=== PATIENT | male | born 1960 | race Caucasian/White ===

== ENCOUNTER 2017-10-04 09:31 | Emergency (ER) | payer OTHER, MEDICAID ==
[~2017-10-04] VITALS: Ht 167.6 cm; Wt 75.0 kg
[~2017-10-04 09:31] MED LIST: CILO100T PO; HYDR-3533 PO; LISI-586 PO; METO50TA PO; TRAM50 PO; ZOCO40TA PO; ZOFR4TAB3 SL
[2017-10-04 09:35] VITALS: BP 192/88; PULSE 78; RESP 24; TEMP 97.8; O2SAT 98
--- NOTE | 2017-10-04 10:10 | RADRPT ---
EXAM DATE/TIME: 10/04/2017 09:59 [place] COMPARISON: No previous studies available for comparison. INDICATIONS : Short of breath and swollen feet. MEDICAL HISTORY : Chronic obstructive pulmonary disease. SURGICAL HISTORY : None. ENCOUNTER: Initial ACUITY: 3 days PAIN SCORE: 0/10 LOCATION: Bilateral chest FINDINGS: PA and lateral views of the chest demonstrate the lungs to be symmetrically aerated without evidence of mass, infiltrate or effusion. The cardiomediastinal contours are unremarkable. Osseous structure s are intact. CONCLUSION: No acute disease. Benjamín Smyth MD on October 04, 2017 at 10:07 Board Certified Radiologist. This report was verified electronically.
[2017-10-04 10:23] LABS: AUTOMATED NEUTROPHIL # 6.7 TH/MM3 (1.8-7.7); BASOPHIL # 0.1 TH/MM3 (0-0.2); BASOPHIL % 0.9 % (0.0-2.0); EOSINOPHIL # 0.2 TH/MM3 (0-0.4); EOSINOPHIL % 2.5 % (0.0-4.0); HEMATOCRIT 48.3 % (39.0-51.0); HEMOGLOBIN 16.9 GM/DL (13.0-17.0); LYMPH % 19.6 % (9.0-44.0); LYMPHOCYTE # 1.9 TH/MM3 (1.0-4.8); MEAN CELL VOLUME 92.7 FL (80.0-100.0); MEAN CORPUSCULAR HEMOGLOBIN 32.4 PG (27.0-34.0); MEAN CORPUSCULAR HGB CONC 34.9 % (32.0-36.0); MEAN PLATELET VOLUME 7.8 FL (7.0-11.0); MONO % 9.1 % (0.0-8.0); MONOCYTE # 0.9 TH/MM3 (0-0.9); NEUT % 67.9 % (16.0-70.0); PLATELET COUNT 234 TH/MM3 (150-450); RED BLOOD COUNT 5.21 MIL/MM3 (4.50-5.90); RED CELL DISTRIBUTION WIDTH 14.6 % (11.6-17.2); WHITE BLOOD COUNT 9.8 TH/MM3 (4.0-11.0)
[2017-10-04 10:28] VITALS: PULSE 74; RESP 18; O2SAT 99
[2017-10-04 10:28] LABS: PROTHROMBIN TIME - PATIENT 9.9 SEC (9.8-11.6)
[2017-10-04 10:34] LABS: BICARBONATE 26.2 MEQ/L (21.0-32.0); BLOOD UREA NITROGEN 11 MG/DL (7-18); CALCIUM 9.4 MG/DL (8.5-10.1); CHLORIDE 104 MEQ/L (98-107); CREATININE 1.03 MG/DL (0.60-1.30); GLOMERULAR FILTRATION RATE 74 ML/MIN (>89); GLUCOSE,RANDOM 94 MG/DL (74-106); SODIUM (NA) 139 MEQ/L (136-145)
[2017-10-04 10:39] LABS: TROPONIN I LESS THAN 0.02 NG/ML (0.02-0.05)
[2017-10-04] MEDS ORDERED: ATOR20TA15 PO (10:46)
[2017-10-04] MEDS ORDERED: CILO100T PO (10:46)
[2017-10-04] MEDS ORDERED: OMEP20TA93 PO (10:46)
[2017-10-04] MEDS ORDERED: LISI20TA PO (10:46)
[2017-10-04] MEDS ORDERED: MIRTA15 PO (10:46)
--- NOTE | 2017-10-04 11:02 | PD ---
HPI Chief Complaint: Edema Time Seen by Provider: 10:23 Travel History International Travel<30 days: No Contact w/Intl Traveler<30days: No Traveled to known affect area: No History of Present Illness HPI 57-year-old man presents to the emergency department some lower extremity swelling. States he has noticed swelling of both ankles ongoing for the past several days. He has not had a history of problems in the past. No history of kidney problems. No history of heart problems. He does have COPD. He states his breathing's been at baseline. He also has peripheral arterial disease, takes a blood thinner, but has not noticed any change in his symptoms. No pain. No history of DVT. No other complaints. History Past Medical History Narrative Medical COPD Hypertension Hyperlipidemia Peripheral arterial disease Influenza Vaccination: Yes Social History Alcohol Use: No Tobacco Use: Yes (07/28 ppd) Allergies-Medications (Allergen,Severity, Reaction): Coded Allergies: penicillin G (Unverified Allergy, Severe, Hives, 03/08/17) Reported Meds & Prescriptions Reported Meds & Active Scripts Active Reported Mirtazapine 15 Mg Tab 15 Mg PO HS Cilostazol 100 Mg Tab 100 Mg PO BID Take 30 minutes before or 2hrs after breakfast and dinner Omeprazole 20 Mg Tab 20 Mg PO DAILY Lisinopril-Hctz 20-12.5 Mg Tab 1 Tab PO DAILY Atorvastatin (Atorvastatin Calcium) 20 Mg Tab 20 Mg PO HS Review of Systems Except as stated in HPI: all other systems reviewed are Neg Physical Exam Narrative GENERAL: Well-appearing 57-year-old man, in no acute distress. SKIN: Focused skin assessment warm/dry. HEAD: Atraumatic. Normocephalic. EYES: Pupils equal and round. No scleral icterus. No injection or drainage. ENT: No nasal bleeding or discharge. Mucous membranes pink and moist. NECK: Trachea midline. No JVD. CARDIOVASCULAR: Regular rate and rhythm. No murmur appreciated. RESPIRATORY: No accessory muscle use. Clear to auscultation. Breath sounds equal bilaterally. GASTROINTESTINAL: Abdomen soft, non-tender, nondistended. Hepatic and splenic margins not palpable. MUSCULOSKELETAL: No obvious deformities. Some minimal pitting edema both lower extremities. Feet are a little bit cool. Palpable DP pulses bilaterally. A little bit of mottling in the toes. Clubbing in the nails of the toes. There is no erythema redness or evidence of cellulitis. This may be a little bit of warmth. Is no calf tenderness. Feet or legs are symmetric bilaterally. Data Data Last Documented VS Vital Signs Date Time Temp Pulse Resp B/P (MAP) Pulse Ox O2 Delivery O2 Flow Rate FiO2 10/04/17 10:28 74 18 99 Room Air 10/04/17 09:35 97.8 192/88 (122) Orders Orders Electrocardiogram (10/04/17 09:41) Complete Blood Count With Diff (10/04/17 09:41) Basic Metabolic Panel (Bmp) (10/04/17 09:41) Ckmb (Isoenzyme) Profile (10/04/17:41) Troponin I (10/04/17:41) Iv Access Insert/Monitor (10/04/17:41) Ecg Monitoring (10/04/17 09:41) Oxygen Administration (10/04/17 09:41) Oximetry (10/04/17 09:41) Chest, Pa & Lat (10/04/17 09:41) Coag Profile (10/04/17 09:41) CKMB (10/04/17 09:46) CKMB% (10/04/17 09:46) Labs Laboratory Tests Test 10/04/17 09:46 White Blood Count 9.8 TH/MM3 Red Blood Count 5.21 MIL/MM3 Hemoglobin 16.9 GM/DL Hematocrit 48.3 % Mean Corpuscular Volume 92.7 FL Mean Corpuscular Hemoglobin 32.4 PG Mean Corpuscular Hemoglobin Concent 34.9 % Red Cell Distribution Width 14.6 % Platelet Count 234 TH/MM3 Mean Platelet Volume 7.8 FL Neutrophils (%) (Auto) 67.9 % Lymphocytes (%) (Auto) 19.6 % Monocytes (%) (Auto) 9.1 % Eosinophils (%) (Auto) 2.5 % Basophils (%) (Auto) 0.9 % Neutrophils # (Auto) 6.7 TH/MM3 Lymphocytes # (Auto) 1.9 TH/MM3 Monocytes # (Auto) 0.9 TH/MM3 Eosinophils # (Auto) 0.2 TH/MM3 Basophils # (Auto) 0.1 TH/MM3 CBC Comment DIFF FINAL Differential Comment Prothrombin Time 9.9 SEC Prothromb Time International Ratio 1.0 RATIO Activated Partial Thromboplast Time 23.8 SEC Blood Urea Nitrogen 11 MG/DL Creatinine 1.03 MG/DL Random Glucose 94 MG/DL Calcium Level 9.4 MG/DL Sodium Level 139 MEQ/L Potassium Level 4.1 MEQ/L Chloride Level 104 MEQ/L Carbon Dioxide Level 26.2 MEQ/L Anion Gap 9 MEQ/L Estimat Glomerular Filtration Rate 74 ML/MIN Total Creatine Kinase 129 U/L Creatine Kinase MB 3.0 NG/ML Troponin I LESS THAN 0.02 NG/ML MDM Medical Decision Making Medical Screen Exam Complete: Yes Emergency Medical Condition: Yes Interpretation(s) LABS: CBC is unremarkable. BMP is unremarkable. Troponins negative. Coags unremarkable. Chest x-ray is negative. Differential Diagnosis Dependent edema, peripheral arterial disease, other Narrative Course Medical decision making INITIAL pleasant 57-year-old man presents to the emergency department with lower extremity swelling about his ankles bilaterally. Looks well. He has some peripheral arterial disease. No evidence of DVT or infection. Renal functions normal. No evidence of heart failure. Recommend elevate lower extremities, follow-up with PCP. Diagnosis Primary Impression: Swelling of lower extremity Patient Instructions: General Instructions Additional Instructions: Keep legs elevated. Use compression stockings if up on her feet for long periods of time. Follow-up with your primary doctor next week. Med/Other Pt SpecificInfo: No Change to Meds Disposition: 01 DISCHARGE HOME Condition: Stable Ulysses Velasquez MD Oct 04, 2017 11:02
--- NOTE | 2017-10-04 19:08 | EKG ---
Date Performed: 10/04/2017 Time Performed: 09:47:34 PTAGE: 57 years EKG: Sinus rhythm WITH SHORT [place] INTERVAL BORDERLINE ECG PREVIOUS TRACING : 09/25/2015 19.33 Since the previous tracing, no significant change noted DOCTOR: Anthony Eddy Interpretating Date/Time 10/04/2017 19:07:15
== END 2017-10-04 11:27 | disposition home or self-care (01) ==
LOC: NEPC 09:31
DX: M79.89 Other specified soft tissue disorders (principal); I73.9 Peripheral vascular disease, unspecified; E78.5 Hyperlipidemia, unspecified; I10 Essential (primary) hypertension; J44.9 Chronic obstructive pulmonary disease, unspecified; F17.200 Nicotine dependence, unspecified, uncomplicated
CPT/HCPCS: 71046; 80048; 82550; 82552; 84484; 85025; 85610; 85730; 93005

== ENCOUNTER 2018-04-23 05:24 | Inpatient (IN) ==
--- NOTE | 2018-04-23 05:54 | ED ---
HPI General Chief complaint: Skin/Abscess/Foreign Body Stated complaint: Poss bite on back of neck x 1 wk Time Seen by Provider: 04/23/18 05:49 Source: patient and family Mode of arrival: ambulatory Limitations: no limitations History of Present Illness HPI narrative: Patient has 3 x 5 cm abscess to back of neck. Patient was seen at [facility] where they did an I&D but it has recurred. Patient is on Bactrim however the abscess has increased in severity. Related Data Home Medications Medication Instructions Recorded Confirmed metoprolol tartrate 1 tab PO BID 04/17/18 04/23/18 simvastatin 40 mg PO QPM 04/23/18 04/23/18 Previous Rx's Medication Instructions Recorded cephalexin [Keflex] 500 mg PO Q6H 10 Days #40 cap 04/17/18 sulfamethoxazole-trimethoprim 1 tab PO Q12H #20 tab 04/17/18 [Bactrim DS] Allergies Allergy/AdvReac Type Severity Reaction Status Date / Time penicillin G Allergy Severe Anaphylaxis Verified 04/17/18 16:43 Review of Systems ROS: all other systems reviewed are negative [facility] Medical History Medical History Borderline diabetes (Acute) COPD (chronic obstructive pulmonary disease) (Acute) High cholesterol (Acute) Hypertension (Acute) Inguinal hernia, right (Acute) Presence of stent in artery (Acute) Surgical History Surgical History Presence of stent in artery (Acute) Family History Family History Father History of myocardial infarction Social History Social History Substance History: No History of Abuse Second Hand Smoke Exposure: No Smoking Status: Current every day smoker Tobacco Type: Cigarettes Packs Per Day: 1 Cigarettes Per Day: 20.0 Years Smoked: 44 Pack-Years: 44.00 How Often Do You Have a Drink Containing Alcohol: Never Recent Travel in [place] within the Last 8 Weeks: No Recent Out of Country Travel within the Last 8 Weeks: No Exam Narrative Exam Narrative: GENERAL: Alert and oriented in significant pain from abscess. SKIN: Focused skin assessment warm/dry. HEAD: Atraumatic. Normocephalic. Patient has 3 x 6 cm abscess with horizontal at the base of the occiput in the neck. Flocculence evidenced but firm surrounding cellulitis exist. EYES: Pupils equal and round. No scleral icterus. No injection or drainage. ENT: No nasal bleeding or discharge. Mucous membranes pink and moist. NECK: Trachea midline. No JVD. CARDIOVASCULAR: Regular rate and rhythm. No murmur appreciated. RESPIRATORY: No accessory muscle use. Clear to auscultation. Breath sounds equal bilaterally. GASTROINTESTINAL: Abdomen soft, non-tender, nondistended. Hepatic and splenic margins not palpable. MUSCULOSKELETAL: No obvious deformities. No clubbing. No cyanosis. No edema. NEUROLOGICAL: Awake and alert. No obvious cranial nerve deficits. Motor grossly within normal limits. Normal speech. PSYCHIATRIC: Appropriate mood and affect; insight and judgment normal. Procedures Abscess I/D Site: neck (6 x 3 cm flocculent abscess with surrounding cellulitis to back of neck. No evidence of previous I&D.) Anesthetic used: with epi Technique: incised with #11 blade Amount of fluid expressed (mL): 7 Irrigation: No Packing used?: none Course Initial Documented Vital Signs Temperature 98.3 F 04/23/18 05:25 Pulse Rate 90 04/23/18 05:25 Respiratory Rate 18 04/23/18 05:25 Blood Pressure 122/95 H 04/23/18 05:25 Pulse Oximetry 97 04/23/18 05:25 Last Documented Vital Signs Temperature 98.6 F 04/24/18 00:00 Pulse Rate 65 04/24/18 00:00 Respiratory Rate 16 04/24/18 00:00 Blood Pressure 112/53 L 04/24/18 00:00 Pulse Oximetry 95 04/24/18 00:00 Critical Care Time Critical Care Time: No Medical Decision Making MDM Narrative Medical decision making narrative: Patient has significant abscess to back of neck that was previously I&D and patient was placed on antibiotics. Patient failed to respond and comes in with increasing pain and discomfort. This required I&D again and removal of 6-7 mL of purulent material and culture. Patient had significant cellulitis surrounding the abcess. Patient was admitted to inpatient for IV antibiotics/packing and further treatment. Medical Screen Exam Complete: Yes Emergency Medical Condition: Yes Lab Data Result diagrams: 04/23/18 07:05 04/23/18 07:05 Lab Results 04/23/18 04/23/18 Range/Units 07:05 07:05 CBC w Diff Auto diff final WBC 15.0 H (4.0-11.0) th/mm3 RBC 4.89 (4.50-5.90) mil/mm3 Hgb 15.1 (13.0-17.0) gm/dL Hct 43.6 (39.0-51.0) % MCV 89.1 (80.0-100.0) fL MCH 30.8 (27.0-34.0) pg MCHC 34.5 (32.0-36.0) % RDW 14.4 (11.6-17.2) % Plt Count 285 (150-450) th/mm3 MPV 7.8 (7.0-11.0) fL Neut % (Auto) 77.7 H (16.0-70.0) % Lymph % (Auto) 12.3 (9.0-44.0) % [place] % (Auto) 6.8 (0.0-8.0) % Eos % (Auto) 2.6 (0.0-4.0) % Baso % (Auto) 0.6 (0.0-2.0) % Neut # (Auto) 11.7 H (1.8-7.7) th/mm3 Lymph # (Auto) 1.8 (1.0-4.8) th/mm3 [place] # (Auto) 1.0 H (0.0-0.9) th/mm3 Eos # (Auto) 0.4 (0.0-0.4) th/mm3 Baso # (Auto) 0.1 (0.0-0.2) th/mm3 WBC Differential . Differential Comment . Sodium 139 (136-145) meq/L Potassium 3.9 (3.5-5.1) meq/L Chloride 103 (98-107) meq/L Carbon Dioxide 25.8 (21.0-32.0) meq/L Anion Gap 10 (5-15) meq/L BUN 8 (7-18) mg/dL Creatinine 0.96 (0.60-1.30) mg/dL Estimated GFR 80 L (>89) mL/min Random Glucose 95 (74-106) mg/dL Calcium 8.7 (8.5-10.1) mg/dL Discharge Plan Discharge Disposition Patient Disposition: 30 Still Patient Discharge Details Diagnosis: Abscess of neck Physicians Team ED Provider: Piter Banda Primary Care Provider: Iveth Mariano Attending Provider: Kadeem Harris Other Providers: Fredy Daniel Discharge Interventions Interventions: ED Discharge Assessment Last Done: 04/23/18 08:52 Vital Signs Last Done: 04/23/18 05:25 Status ED Status: Left Department Discharge Information Discharge Date/Time: 04/23/18 08:53
[2018-04-23] MEDS ORDERED: Ketorolac Inj 30 MG/ML (IVP) Vial IV.PUSH ONE ×2 (05:56→06:00)
[2018-04-23] MEDS ORDERED: Clindamycin 900 mg/NS Premix 900 MG/50 ML PIGGYBACK IV.SIG SCH (06:00)
[2018-04-23] MEDS ORDERED: Lidocaine 2%/Epinephrine 1:100,000 30 ML MDV INFILTRATN ONE (06:30)
[2018-04-23 07:17] LABS: Baso # (Auto) 0.1 th/mm3 (0.0-0.2); Baso % (Auto) 0.6 % (0.0-2.0); Eos # (Auto) 0.4 th/mm3 (0.0-0.4); Eos % (Auto) 2.6 % (0.0-4.0); Hematocrit 43.6 % (39.0-51.0); Hemoglobin 15.1 gm/dL (13.0-17.0); Lymph # (Auto) 1.8 th/mm3 (1.0-4.8); Lymph % (Auto) 12.3 % (9.0-44.0); Mean Corpuscular HGB Conc 34.5 % (32.0-36.0); Mean Corpuscular Hemoglobin 30.8 pg (27.0-34.0); Mean Corpuscular Volume 89.1 fL (80.0-100.0); Mean Platelet Volume 7.8 fL (7.0-11.0); Mono % (Auto) 6.8 % (0.0-8.0); Neut # (Auto) 11.7 th/mm3 (1.8-7.7); Neut % (Auto) 77.7 % (16.0-70.0); Platelet Count 285 th/mm3 (150-450); Red Blood Count 4.89 mil/mm3 (4.50-5.90); Red Cell Distribution Width 14.4 % (11.6-17.2)
[2018-04-23 07:35] LABS: Potassium 3.9 meq/L (3.5-5.1)
[2018-04-23 07:37] LABS: Calcium 8.7 mg/dL (8.5-10.1)
[2018-04-23 07:38] LABS: Carbon Dioxide 25.8 meq/L (21.0-32.0)
[2018-04-23] MEDS ORDERED: Vancomycin Inj 1,000 MG in Sodium Chlor 0.9% Inj 250 ML IV.SIG ONE (08:00)
[2018-04-23] MEDS ORDERED: Vancomycin Consult Pharmacy OTHER PRN (08:00)
[2018-04-23] MEDS: Lactobacillus Acidophilus/L. Spores Tablet PO SCH ×3 (10:03→17:20)
--- NOTE | 2018-04-23 10:04 | P.HP ---
History of Present Illness Primary Care Physician: Iveth Mariano MD Chief Complaint: Neck infection not improving History of Present Illness: 58-year-old male with known history of hypertension, hyperlipidemia, borderline diabetes who presented to the hospital because of worsening neck wound. Patient originally came to emergency department 04/17/18 and had incision and drainage done of an abscess on his neck. Patient was discharged home on Keflex and Bactrim, however patient states that he did not improve and the area continue to get bigger. So he came back to the emergency department. Patient did undergo workup by emergency room physician and had repeat incision and drainage performed with expressing of the accident. Because the patient failed outpatient management patient was started on IV antibiotics and is recommend the patient be admitted for further evaluation and management. Patient denies any fever, chills, chest pain, abdominal pain, nausea, vomiting, diaphoresis. - Diagnosis (1) Neck abscess (2) Leukocytosis Inpatient Certification: I certify that the inpatient services were ordered in accordance with Medicare regulations governing the order. This includes certification that hospital inpatient services are reasonable and necessary and in the case of services not specified as inpatient-only under 42 CFR 419.22(n), that they are appropriately provided as inpatient services in accordance to with the 2-midnight benchmark under 43 CFR 412.3(e) Estimated Total Length of Stay (Days): 3 Plans for Post Hospital Care: Home Review of Systems All other systems reviewed negative except as stated in HPI Skin/Breast: Reports change in skin color, Reports wounds PMFSH - History History Provided By: Patient - Medical History Medical History: Medical History (Last Reviewed 04/23/18 @ 09:05 by BLAKE Gamble) Borderline diabetes COPD (chronic obstructive pulmonary disease) High cholesterol Hypertension Inguinal hernia, right - Surgical History Surgical History: Surgical History (Last Updated 04/23/18 @ 09:05 by BLAKE Gamble) Presence of stent in artery - Family History Family History: Family History (Last Updated 04/23/18 @ 10:00 by BLAKE Gamble) Father History of myocardial infarction - Tobacco History Second Hand Smoke Exposure: Yes Tobacco Use In Past 30 Days: Yes Smoking Status: Current every day smoker Tobacco Type: Cigarettes Packs Per Day: 1 Years Smoked: 44 - Alcohol History How Often Do You Have a Drink Containing Alcohol: Never - Substance Use History Substance History: No History of Abuse - Travel History Recent Travel in the [place] Within the Last 8 Weeks: No Recent Travel Out of the Country Within the Last 8 Weeks: No - Immunization History Tetanus Immunization: <5 Years Hx Influenza Vaccine This Season: No Medications and Allergies Active Medications: Active Medications Hydrocodone Bitart/Acetaminophen ([place] 5/325) 1 tab PO Q4H PRN PRN Reason: Pain 3 to 6 Hydrocodone Bitart/Acetaminophen ([place] 10/325) 1 tab PO Q4H PRN PRN Reason: Pain 7 to 10 Al Hydroxide/Mg Hydroxide (Milk Of Magnrussel Liq) 30 ml PO Q12H PRN PRN Reason: Mild Constipation Vancomycin HCl 1,250 mg/ (Sodium Chloride) 262.5 mls @ 250 mls/hr IV.SIG Q18H JUANPABLO Lactobacillus Acidophilus (Lactinex) 1 tab PO TID JUANPABLO Miscellaneous Information ([facility] Ordered Lab Info) 0 each OTHER ONCE ONE Stop: 04/26/18 03:46 Ondansetron HCl (Zofran Inj) 4 mg IV.PUSH Q6H PRN PRN Reason: NAUSEA OR VOMITING Pharmacy Profile Note (Vancomycin Consult Pharmacy) 1 each OTHER UNSCH PRN PRN Reason: Pharmacy to dose Allergies Allergy/AdvReac Type Severity Reaction Status Date / Time penicillin G Allergy Severe Anaphylaxis Verified 04/17/18 16:43 Home Medications Medication Instructions Recorded Confirmed Type metoprolol tartrate 1 tab PO BID 04/17/18 04/23/18 History simvastatin 40 mg PO QPM 04/23/18 04/23/18 History Exam Vital signs: Vital Signs 04/23/18 05:25 04/23/18 07:30 04/23/18 07:42 Temperature 98.3 F 98.8 F Pulse Rate 90 78 Respiratory Rate 18 14 16 Blood Pressure 122/95 H 148/89 H Pulse Oximetry 97 99 04/23/18 08:30 Temperature Pulse Rate 73 Respiratory Rate 16 Blood Pressure 153/84 H Pulse Oximetry 97 Intake & Output 04/22/18 04/23/18 04/23/18 18:59 06:59 18:59 Intake Total 50 / 50 217 / 217 Balance 50 / 50 217 / 217 Weight 68.5 kg Intake: IV 50 / 50 217 / 217 Cleocin 900 mg/NS Premix 900 mg 50 / 50 In 50 ml @ 100 mls/hr IV.SIG Q8H JUANPABLO Rx#:[id number] Vancomycin Inj 1,000 MG In NS 217 / 217 Inj 250 ML @ 250 mls/hr IV.SIG ONCE ONE Rx#:[id number] Narrative: GENERAL: Well-developed, well-nourished, in no acute distress. alert and orientated HEENT: Head is normocephalic without any lesions or masses noted. Facial features are symmetric. Eyes: Pupils equal round reactive to light. Extraocular muscles are intact. Conjunctivae were clear. Oropharyngeal: Pharynx without any erythema edema. Tongue is midline without deviation. Buccal mucosa is moist without any masses or lesions NECK: Supple. Trachea midline no deviation. No JVD, no bruits are appreciated. Patient does have bandage around his neck CARDIAC: Regular rhythm, regular rate. S1/S2 are heard. No murmurs gallops or rubs. LUNGS: Clear to auscultation bilaterally. No wheeze, rhonchi or rales. No use of accessory muscles on inspiration or expiration. ABDOMEN: Soft, nontender. Nondistended. Bowel sounds heard in all 4 quadrants. No organomegaly or masses. Negative rebound, negative guarding EXTREMITIES: No edema, pulses are equal bilaterally. 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 Cranial nerves II through XII grossly intact. Muscle strength 5/5 in upper and lower extremities bilaterally. Deep tendon reflexes are 2+ in upper and lower extremities bilaterally. Results - Labs CBC & Chem 7: 04/23/18 07:05 04/23/18 07:05 Labs: Laboratory Results - last 24 hr 04/23/18 04/23/18 07:05 07:05 CBC w Diff Auto diff final WBC 15.0 H RBC 4.89 Hgb 15.1 Hct 43.6 MCV 89.1 MCH 30.8 MCHC 34.5 RDW 14.4 Plt Count 285 MPV 7.8 Neut % (Auto) 77.7 H Lymph % (Auto) 12.3 [place] % (Auto) 6.8 Eos % (Auto) 2.6 Baso % (Auto) 0.6 Neut # (Auto) 11.7 H Lymph # (Auto) 1.8 [place] # (Auto) 1.0 H Eos # (Auto) 0.4 Baso # (Auto) 0.1 WBC Differential . Differential Comment . Sodium 139 Potassium 3.9 Chloride 103 Carbon Dioxide 25.8 Anion Gap 10 BUN 8 Creatinine 0.96 Estimated GFR 80 L Random Glucose 95 Calcium 8.7 Caprini VTE Risk Assessment Caprini VTE Risk Assessment: No/Low Risk (score <= 1) Caprini Risk Assessment Model: Point Value = 1 Point Value = 2 Point Value = 3 Point Value = 5 Age 41-60 Minor surgery BMI > 25 kg/m2 Swollen legs Varicose veins or History of unexplained or recurrent spontaneous Oral contraceptives or hormone replacement Sepsis (< 1 month) Serious lung disease, including pneumonia (< 1 month) Abnormal pulmonary function Acute myocardial infarction Congestive heart failure (< 1 month) History of inflammatory bowel disease Medical patient at bed rest Age 61-74 Arthroscopic surgery Major open surgery (> 45 min) Laparoscopic surgery (> 45 min) Malignancy Confined to bed (> 72 hours) Immobilizing plaster cast Central venous access Age >= 75 History of VTE Family history of VTE Factor V Leiden Prothrombin [id number] Lupus anticoagulant Anticardiolipin antibodies Elevated serum homocysteine Heparin-induced thrombocytopenia Other congenital or acquired thrombophilia Stroke (< 1 month) Elective arthroplasty Hip, pelvis, or leg fracture Acute spinal cord injury (< 1 month) Prophylaxis Regimen: Total Risk Factor Score Risk Level Prophylaxis Regimen 0-1 Low Early ambulation 2 Moderate Order ONE of the following: *Sequential Compression Device (SCD) *Heparin 5000 units SQ BID 3-4 Higher Order ONE of the following medications: *Heparin 5000 units SQ TID *Enoxaparin/Lovenox 40 mg SQ daily (WT < 150 kg, CrCl > 30 mL/min) *Enoxaparin/Lovenox 30 mg SQ daily (WT < 150 kg, CrCl > 10-29 mL/min) *Enoxaparin/Lovenox 30 mg SQ BID (WT < 150 kg, CrCl > 30 mL/min) AND/OR *Sequential Compression Device (SCD) 5 or more Highest Order ONE of the following medications: *Heparin 5000 units SQ TID (Preferred with Epidurals) *Enoxaparin/Lovenox 40 mg SQ daily (WT < 150 kg, CrCl > 30 mL/min) *Enoxaparin/Lovenox 30 mg SQ daily (WT < 150 kg, CrCl > 10-29 mL/min) *Enoxaparin/Lovenox 30 mg SQ BID (WT < 150 kg, CrCl > 30 mL/min) AND *Sequential Compression Device (SCD) Assessment and Plan - Assessment (1) Neck abscess Code(s): L02.11 - Cutaneous abscess of neck Status: Acute (2) Leukocytosis Code(s): D72.829 - Elevated white blood cell count, unspecified Status: Acute - Plan Posterior neck abscess -Patient had previous incision and drainage done and started on Keflex and Bactrim, patient failed outpatient management -Repeat incision and drainage was performed by the ER physician -Patient started on vancomycin with pharmacy dosing -Pain control with hydrocodone Leukocytosis -Continue monitor CBC Hypertension, hyperlipidemia -Continue home medications DVT prevention -Sequential compression devices
[2018-04-23] MEDS ORDERED: Vancomycin Inj 1 GM/200 ML PIGGYBACK IV.SIG SCH (11:00)
[2018-04-23] MEDS: Metoprolol Tartrate 50 MG Tablet PO SCH ×2 (12:40→20:24)
[2018-04-23] MEDS: Vancomycin Inj 1,250 MG in Sodium Chlor 0.9% Inj 250 ML IV.SIG SCH ×2 (20:24→22:05)
[2018-04-24 06:38] LABS: Baso # (Auto) 0.1 th/mm3 (0.0-0.2); Baso % (Auto) 0.9 % (0.0-2.0); Eos # (Auto) 0.6 th/mm3 (0.0-0.4); Hematocrit 41.3 % (39.0-51.0); Hemoglobin 13.9 gm/dL (13.0-17.0); Lymph # (Auto) 2.1 th/mm3 (1.0-4.8); Lymph % (Auto) 21.9 % (9.0-44.0); Mean Corpuscular HGB Conc 33.5 % (32.0-36.0); Mean Corpuscular Hemoglobin 30.6 pg (27.0-34.0); Mean Corpuscular Volume 91.5 fL (80.0-100.0); Mean Platelet Volume 7.5 fL (7.0-11.0); Mono # (Auto) 0.8 th/mm3 (0.0-0.9); Mono % (Auto) 8.1 % (0.0-8.0); Neut # (Auto) 6.1 th/mm3 (1.8-7.7); Neut % (Auto) 63.1 % (16.0-70.0); Platelet Count 257 th/mm3 (150-450); Red Blood Count 4.52 mil/mm3 (4.50-5.90); White Blood Count 9.7 th/mm3 (4.0-11.0)
[2018-04-24 06:55] LABS: Chloride 104 meq/L (98-107); Potassium 4.1 meq/L (3.5-5.1); Sodium 139 meq/L (136-145)
[2018-04-24 07:00] LABS: Albumin 2.7 g/dL (3.4-5.0); Anion Gap 8 meq/L (5-15); Calcium 8.2 mg/dL (8.5-10.1); Carbon Dioxide 26.6 meq/L (21.0-32.0); Glucose,Random 85 mg/dL (74-106)
[2018-04-24 07:01] LABS: Blood Urea Nitrogen 11 mg/dL (7-18)
[2018-04-24 07:03] LABS: Alanine Aminotransferase 36 U/L (12-78); Aspartate Aminotransferase 14 U/L (15-37)
[2018-04-24 07:04] LABS: Glomerular Filtration Rate Greater Than 89 mL/min (>89)
[2018-04-24 07:05] LABS: Total Protein 6.4 g/dL (6.4-8.2)
[2018-04-24 07:06] LABS: Alkaline Phosphatase 77 U/L (45-117)
--- NOTE | 2018-04-24 10:12 | P.PN ---
Subjective Interval history: 58-year-old male who is seen and examined today for follow-up on cellulitis and abscess of his neck. Patient is doing much better. Patient states that the pain is significantly improved. Patient is eager to go home. Awaiting culture for antibiotic recommendations. Vital signs remained stable. Patient remains afebrile. Physical Exam Vital signs: Vital Signs 04/23/18 12:00 04/23/18 16:00 04/23/18 17:26 Temperature 98.3 F 99.0 F Pulse Rate 76 61 Respiratory Rate 18 18 18 Blood Pressure 152/71 H 118/56 L Pulse Oximetry 95 97 04/23/18 17:56 04/23/18 20:00 04/24/18 00:00 Temperature 98.7 F 98.6 F Pulse Rate 66 65 Respiratory Rate 18 16 16 Blood Pressure 136/76 112/53 L Pulse Oximetry 97 95 04/24/18 08:00 Temperature 97.4 F L Pulse Rate 55 L Respiratory Rate 20 Blood Pressure 132/68 Pulse Oximetry 96 Intake & Output 04/23/18 04/24/18 04/24/18 18:59 06:59 18:59 Intake Total 850 / 850 262.5 / 262.5 240 / 240 Balance 850 / 850 262.5 / 262.5 240 / 240 Weight 68.8 kg Intake: IV 250 / 250 262.5 / 262.5 Vancomycin Inj 1,000 MG In NS 250 / 250 Inj 250 ML @ 250 mls/hr IV.SIG ONCE ONE Rx#:[id number] Vancomycin Inj 1,250 MG In NS 262.5 / 262.5 Inj 250 ML @ 250 mls/hr IV.SIG Q18H JUANPABLO Rx#:[id number] Oral 600 / 600 240 / 240 Other: # Voids 2 2 Narrative: GENERAL: Well-developed, well-nourished, in no acute distress. alert and orientated HEENT: Head is normocephalic without any lesions or masses noted. Facial features are symmetric. Eyes: Extraocular muscles are intact. Conjunctivae were clear. NECK: Supple. Trachea midline no deviation. No JVD, patient does have a horizontal incision made across the back of his neck which appears to have clean edges. Was unable to express any exudate. Does have serosanguineous drainage CARDIAC: Regular rhythm, regular rate. S1/S2 are heard. No murmurs gallops or rubs. LUNGS: Clear to auscultation bilaterally. No wheeze, rhonchi or rales. No use of accessory muscles on inspiration or expiration. ABDOMEN: Soft, nontender. Nondistended. Bowel sounds heard in all 4 quadrants. No organomegaly or masses. Negative rebound, negative guarding EXTREMITIES: No edema, pulses are equal bilaterally. No cyanosis or clubbing NEUROLOGY: Mood and affect appear appropriate. Cranial nerves II through XII grossly intact. Moving all extremities, speech is clear Results - Labs CBC & Chem 7: 04/24/18 06:20 04/24/18 06:20 Laboratory Results - last 24 hr 04/24/18 04/24/18 06:20 06:20 CBC w Diff Auto diff final WBC 9.7 RBC 4.52 Hgb 13.9 Hct 41.3 MCV 91.5 MCH 30.6 MCHC 33.5 RDW 14.0 Plt Count 257 MPV 7.5 Neut % (Auto) 63.1 Lymph % (Auto) 21.9 [place] % (Auto) 8.1 H Eos % (Auto) 6.0 H Baso % (Auto) 0.9 Neut # (Auto) 6.1 Lymph # (Auto) 2.1 [place] # (Auto) 0.8 Eos # (Auto) 0.6 H Baso # (Auto) 0.1 WBC Differential . Differential Comment . Sodium 139 Potassium 4.1 Chloride 104 Carbon Dioxide 26.6 Anion Gap 8 BUN 11 Creatinine 0.83 Estimated GFR Greater than 89 Random Glucose 85 Calcium 8.2 L Total Bilirubin 0.5 AST 14 L ALT 36 Alkaline Phosphatase 77 Total Protein 6.4 Albumin 2.7 L Assessment and Plan - Assessment (1) Neck abscess Code(s): L02.11 - Status: Acute (2) Leukocytosis Code(s): D72.829 - Status: Acute - Plan Posterior neck abscess, improved -Patient had previous incision and drainage done and started on Keflex and Bactrim, patient failed outpatient management -Repeat incision and drainage was performed by the ER physician -Patient continue on vancomycin with pharmacy dosing -Pain control with hydrocodone -Awaiting culture for appropriate antibiotic Leukocytosis, resolved -Continue monitor CBC Hypertension, hyperlipidemia -Continue home medications DVT prevention -Sequential compression devices
[2018-04-24] MEDS: Lactobacillus Acidophilus/L. Spores Tablet PO SCH ×3 (10:24→18:15)
[2018-04-24] MEDS: Metoprolol Tartrate 50 MG Tablet PO SCH ×2 (10:24→21:43)
[2018-04-24] MEDS: Vancomycin Inj 1,250 MG in Sodium Chlor 0.9% Inj 250 ML IV.SIG SCH (16:11)
[2018-04-25] MEDS: Metoprolol Tartrate 50 MG Tablet PO SCH (10:00)
[2018-04-25] MEDS: Lactobacillus Acidophilus/L. Spores Tablet PO SCH (10:00)
[2018-04-25 10:37] VITALS: BP 166/76; PULSE 61; RESP 22; TEMP 98.4; O2SAT 95
--- NOTE | 2018-04-25 11:05 | P.DS ---
Date of admission: 04/23/18 08:14 Primary care physician: Iveth Mariano MD Brief History from admission: 58-year-old male with known history of hypertension, hyperlipidemia, borderline diabetes who presented to the hospital because of worsening neck wound. Patient originally came to emergency department 04/17/18 and had incision and drainage done of an abscess on his neck. Patient was discharged home on Keflex and Bactrim, however patient states that he did not improve and the area continue to get bigger. So he came back to the emergency department. Patient did undergo workup by emergency room physician and had repeat incision and drainage performed with expressing of the accident. Because the patient failed outpatient management patient was started on IV antibiotics and is recommend the patient be admitted for further evaluation and management. Patient denies any fever, chills, chest pain, abdominal pain, nausea, vomiting, diaphoresis. Patient update on day of discharge: Patient seen and examined DS: Diagnosis - Discharge Diagnosis (1) Neck abscess Status: Acute (2) Leukocytosis Status: Acute (3) Abscess of neck Status: Acute DS: Summary Hospital Course: Patient presented with posterior neck abscess. Patient had previous incision and drainage done and started on Keflex and Bactrim, patient failed outpatient management. Repeat incision and drainage was performed by the ER physician. Patient continue on vancomycin with pharmacy dosing during hospitalization. Patient was also given pain control with hydrocodone. Wound culture was sent to lab and positive for s aureus MRSA. Initially had leukocytosis which improved. Has a history of hypertension and hyperlipidemia, home medications were resumed. - Time Spent with Patient Total time spent providing and/or coordinating discharge services: Greater than 30 minutes - Quality: VTE Deep Vein Thrombosis/Pulmonary Embolism Present on Admission: Yes Exam Vital signs: Vital Signs 04/24/18 12:00 04/24/18 16:00 04/24/18 20:00 Temperature 98.4 F 98.2 F 99.7 F H Pulse Rate 55 L 55 L 59 L Respiratory Rate 20 19 18 Blood Pressure 157/1 H 166/78 H 110/57 L Pulse Oximetry 96 95 96 04/25/18 00:00 04/25/18 08:00 Temperature 96.9 F L 98.4 F Pulse Rate 52 L 61 Respiratory Rate 18 22 Blood Pressure 107/55 L 166/76 H Pulse Oximetry 96 95 Intake & Output 04/24/18 04/25/1818 18:59 06:59 18:59 Intake Total 720 / 720 300 / 300 Output Total 801 / 801 401 / 401 Balance -81 / -81 -101 / -101 Intake: Oral 720 / 720 300 / 300 Output: Urine 800 / 800 400 / 400 Stool Other: Date of Last Bowel Movement 04/24/18 04/24/18 04/25/18 Narrative: GENERAL: Well-developed, well-nourished, in no acute distress. alert and orientated HEENT: Head is normocephalic without any lesions or masses noted. Facial features are symmetric. Eyes: Extraocular muscles are intact. Conjunctivae were clear. NECK: Supple. Trachea midline no deviation. No JVD. A horizontal incision made across the back of his neck which appears to have clean edges. Was unable to express any exudate. Does have serosanguineous drainage. CARDIAC: Regular rhythm, regular rate. S1/S2 are heard. No murmurs gallops or rubs. LUNGS: Clear to auscultation bilaterally. No wheeze, rhonchi or rales. No use of accessory muscles on inspiration or expiration. ABDOMEN: Soft, nontender. Nondistended. Bowel sounds heard in all 4 quadrants. No organomegaly or masses. Negative rebound, negative guarding EXTREMITIES: No edema, pulses are equal bilaterally. No cyanosis or clubbing NEUROLOGY: Mood and affect appear appropriate. Cranial nerves II through XII grossly intact. Moving all extremities, speech is clear Results Procedures completed during hospitalization: Excised neck wound in ED. Discharge Plan - Discharge Disposition Patient Disposition: Discharge Home - Discharge Condition Condition: Stable - Discharge Order Discharge Orders: Discharge Order (Routine); Ordered 04/25/18 Ordered By: Dolores Nicholas - Discharge Details Anticipated Discharge Date: 04/25/18 - Physicians Team Primary Care Provider: Iveth Mariano Attending Provider: Kadeem Harris Other Providers: Fredy Daniel
[2018-04-26] MEDS ORDERED: VANCOMYCIN TROUGH OTHER ONE (03:45)
== END 2018-04-25 13:09 | disposition home or self-care (01) ==
LOC: PHED 05:24 → PHEDA 08:14 → PH3 09:02
PROVIDERS: ADMIT Hospitalist; ATTEND Hospitalist